=== PATIENT | female | born 2000 | race Caucasian/White ===

== ENCOUNTER 2024-09-28 08:58 | Emergency (ER) | payer MEDICAID ==
[~2024-09-28] VITALS: Ht 182.9 cm; Wt 100.0 kg
[2024-09-28 09:17] VITALS: BP 157/91
[2024-09-28 10:12] LABS: BASOPHILS % (AUTO) 0.3 % (0-1); EOSINOPHILS # (AUTO) 0.8 X10'3 (0-0.9); EOSINOPHILS % (AUTO) 9.1 % (0-6); HEMATOCRIT 41.1 % (35.0-45.0); HEMOGLOBIN 13.8 g/dl (12.0-16.0); LYMPHOCYTES # (AUTO) 1.2 X10'3 (1.1-4.8); LYMPHOCYTES % (AUTO) 14.8 % (21-51); MEAN CORPUSCULAR HEMOGLOBIN 28.7 PG (27.0-31.0); MEAN CORPUSCULAR HGB CONC 33.5 g/dL (33.0-36.5); MEAN CORPUSCULAR VOLUME 85.7 FL (78-98); MEAN PLATELET VOLUME 10.4 FL (7.4-10.4); MONOCYTES # (AUTO) 0.7 X10'3 (0-0.9); MONOCYTES % (AUTO) 8.9 % (2-12); NEUTROPHILS # (AUTO) 5.6 X10'3 (1.8-7.7); NEUTROPHILS % (AUTO) 66.9 % (42-75); PLATELET COUNT 213 X10'3 (140-440); WHITE BLOOD COUNT 8.3 X10'3 (4.5-11.0)
[2024-09-28] MEDS: albuterol 2.5 MG/3 ML nebule NEB ONE (10:19)
[2024-09-28 10:24] VITALS: PULSE 85; RESP 20; O2SAT 98
[2024-09-28 10:24] LABS: ALBUMIN 4.1 G/DL (3.4-5.0); ANION GAP 10 (8-16); BLOOD UREA NITROGEN 13 MG/DL (7-18); CALCIUM 8.9 MG/DL (8.5-10.1); CHLORIDE 107 MMOL/L (99-107); CREATININE 0.81 MG/DL (0.40-0.90); GLUCOSE 90 MG/DL (70-104); POTASSIUM 3.7 MMOL/L (3.5-5.1); SODIUM 142 MMOL/L (135-145); eCRCL 124 ML/MIN; eGFR 87 ML/MIN
[2024-09-28] MEDS ORDERED: AMOX-117 PO (11:33)
[2024-09-28] MEDS ORDERED: DOXY-460 PO (11:33)
[2024-09-28 11:47] VITALS: TEMP 97.9
== END 2024-09-28 11:48 | disposition home or self-care (01) ==
LOC: ER 08:59
DX: J16.8 Pneumonia due to other specified infectious organisms (principal); J45.909 Unspecified asthma, uncomplicated
CPT/HCPCS: 36415; 71045; 80048; 85025; 94640; 94760; 99284